=== PATIENT | female | born 1945 | race Caucasian/White ===

== ENCOUNTER 2017-01-20 10:39 | Emergency (ER) | payer MEDICARE, BC | END 2017-01-20 11:12 | disposition home or self-care (01) | LOC: SCSER 10:39 | DX: J06.9 Acute upper respiratory infection, unspecified (principal); I10 Essential (primary) hypertension; F32.9 Major depressive disorder, single episode, unspecified; Z79.899 Other long term (current) drug therapy | CPT/HCPCS: 99283 ==

== ENCOUNTER 2017-04-06 10:34 | Outpatient (CLI) | payer MEDICARE, BC ==
--- NOTE | 2017-04-06 11:22 | CT ---
CT OF PELVIS PERFORMED WITHOUT CONTRAST ENHANCEMENT: History: Follow up of sacral fractures. Patient has a history of a fall. Comparison: 09-29-16 FINDINGS: There are post-operative changes of the lower lumbar spine with bilateral pedicle screws noted. The left sided sacral fracture shows evidence of continued healing. The fracture is almost completely healed. There is still a subtle fracture seen along the anterior cortex of the left sided sacrum jus t below the left pedicle screw. The right sided sacral fracture noted on the previous examination has essentially completely resolved. Bones are demineralized. No new fractures are seen. IMPRESSION: Almost complete healing of the bilateral sacral fractures. There is some minimal residual changes of the left sacral fracture. The right sided insufficiency type fracture is no longer visualized. POS: [facility]
== END 2017-04-06 10:35 | disposition home or self-care (01) ==
LOC: TBSIIMAG 10:34
PROVIDERS: ATTEND Neurological Surgery
DX: S32.10XD Unspecified fracture of sacrum, subsequent encounter for fracture with routine healing (principal)
CPT/HCPCS: 72192

== ENCOUNTER 2017-08-31 10:36 | Outpatient (CLI) | payer MEDICARE, BC | END 2017-08-31 10:37 | disposition home or self-care (01) | LOC: BICCT 10:36 | PROVIDERS: ATTEND Internal Medicine | DX: R06.00 Dyspnea, unspecified (principal); R05 Cough | CPT/HCPCS: 71046; 71250 ==

== ENCOUNTER 2017-09-05 08:17 | Outpatient (CLI) | payer MEDICARE, BC | END 2017-09-05 08:18 | disposition home or self-care (01) | LOC: CP 08:17 | PROVIDERS: ATTEND Internal Medicine | DX: R06.00 Dyspnea, unspecified (principal); R05 Cough; R06.02 Shortness of breath | CPT/HCPCS: 94060; 94727; 94729 ==

== ENCOUNTER 2018-04-18 12:13 | Outpatient (CLI) | payer MEDICARE, BC ==
--- NOTE | 2018-04-18 13:24 | RAD ---
RADIOGRAPH CHEST 2 VIEWS: HISTORY: 72-year-old female with cough. FINDINGS: There is no air space density, pulmonary edema, pleural effusion, pneumothorax, or cardiomegaly. IMPRESSION: No acute cardiopulmonary findings. jn POS: [facility]
== END 2018-04-18 12:14 | disposition home or self-care (01) ==
LOC: BICRAD 12:13
PROVIDERS: ATTEND Internal Medicine
DX: R05 Cough (principal)
CPT/HCPCS: 71046

== ENCOUNTER 2018-06-08 13:19 | Emergency (ER) | payer MEDICARE, BC ==
--- NOTE | 2018-06-08 13:59 | RAD ---
LEFT FOOT 3 VIEWS: COMPARISON: 10/10/2005 HISTORY: Trauma. Pain. Injury. FINDINGS: Chronic changes involving the 2nd tarsometatarsal articulation. There is also irregularity involving the 3rd tarsometatarsal articulation. Findings are chronic and were demonstrated on the prior exami nation. There is evidence of soft tissue swelling. No evidence of subcutaneous emphysema. Mild vas cular calcification is noted. Correlate for diabetes. No evidence of fracture. No acute erosive or destructive processes. IMPRESSION: 1. Soft tissue swelling. Correlate for cellulitis. 2. Vascular calcifications. Correlate for diabetes. 3. No radiographic evidence of osteomyelitis. Chronic changes as described above. POS: [facility]
[2018-06-08 14:13] LABS: #Basophils 0.1 thou/uL (0.0-0.2); #Lymphocytes 1.5 thou/uL (1.20-3.40); #Monocytes 0.7 thou/uL (0.11-0.59); #Neutrophils 4.4 thou/uL (1.40-6.50); %Basophils 1.6 % (0.0-1.0); %Lymphocytes 22.2 % (21.0-51.0); %Monocytes 10.6 % (0.0-10.0); %Neutrophils 65.5 % (42.0-75.0); Hemoglobin 10.8 g/dL (12.0-16.0); Mean Corpuscular HGB CONC 32.4 g/dL (32.0-36.0); Mean Corpuscular Hemoglobin 29.6 pg (27.0-31.0); Mean Corpuscular Volume 91.3 fL (78.0-98.0); Mean Platelet Volume 8.7 fL (7.4-10.4); Platelet Count 148 thou/uL (130-400); RBC Distribution Width 12.3 % (11.5-14.5); Red Blood Cell (RBC) Count 3.66 mill/uL (4.20-5.40); White Blood Cell (WBC) Count 6.8 thou/uL (4.8-10.8)
[2018-06-08 14:19] LABS: Prothrombin Time 12.8 SEC (12.0-14.7)
[2018-06-08 14:26] LABS: ALT (SGPT) 31 U/L (8-55); AST (SGOT) 41 U/L (5-34); Alkaline Phosphatase 110 U/L (40-150); Anion Gap 12 mmol/L (10-20); BUN (Urea Nitrogen) 14 mg/dL (9.8-20.1); Bilirubin, Total 0.3 mg/dL (0.2-1.2); Calc. Creatinine Clearance 0 mL/min (70-130); Calcium 9.5 mg/dL (7.8-10.44); Carbon Dioxide 27 mmol/L (23-31); Chloride 102 mmol/L (98-107); Estimated GFR-MDRD 71; Globulin 2.7 g/dL (2.4-3.5); Glucose 101 mg/dL (83-110); Potassium 4.2 mmol/L (3.5-5.1); Protein, Total 6.7 g/dL (6.0-8.3); Sodium 137 mmol/L (136-145)
--- NOTE | 2018-06-08 15:00 | ULT ---
LEFT LOWER EXTREMITY VENOUS DUPLEX ULTRASOUND INCLUDING COLOR AND SPECTRAL DOPPLER IMAGING: Date: 06/08/18 HISTORY: Leg edema. TECHNIQUE: Exam performed from groin to ankle including visualized greater saphenous, common femoral, superficia l femoral, profunda femoral, popliteal, trifurcation, and posterior tibial vein regions. FINDINGS: Phasic flow noted at all levels with normal compressibility and normal augmentation. No intraluminal thrombus. IMPRESSION: No evidence for deep venous thrombosis. POS: [facility]
== END 2018-06-08 15:32 | disposition home or self-care (01) ==
LOC: SCSER 13:19
DX: L03.116 Cellulitis of left lower limb (principal); I10 Essential (primary) hypertension; F32.9 Major depressive disorder, single episode, unspecified
CPT/HCPCS: 80053; 85025; 85610; 96365; J3370

== ENCOUNTER 2018-06-11 13:57 | Emergency (ER) | payer MEDICARE, BC | END 2018-06-11 15:03 | disposition home or self-care (01) | LOC: SCSER 13:57 | DX: L03.116 Cellulitis of left lower limb (principal); I10 Essential (primary) hypertension; Z79.899 Other long term (current) drug therapy | CPT/HCPCS: 99282 ==

== ENCOUNTER 2018-06-25 10:05 | Outpatient (CLI) | payer MEDICARE, BC ==
[2018-06-25] MEDS ORDERED: Lidocaine 2% 11 ML SYR ONE (19:22)
[2018-06-25] MEDS ORDERED: Sodium Chloride 0.9% 15 ML NEB ONE (19:22)
--- NOTE | 2018-06-25 23:06 | HP ---
HISTORY OF PRESENT ILLNESS: Ms. Monica Carrera is a very pleasant 72-year-old who presents to the [facility] for evaluation of an ulceration of the dorsum of the left foot. The patient states that on 05/26/2018, she suffered a puncture wound to the dorsum of her left lateral foot from a garden stick. She states that she was seen in Urgent Care on 2 occasions. At the time of the patient's first visit, she was given IV antibiotics and placed on p.o. antibiotics, specifically Keflex. At the time of the patient's second visit to Urgent Care, clindamycin was added to the patient's regimen. Because of progressive erythema, the patient was seen by Dr. Leon on 06/19/2018 and placed on sulfa. Also at this time, the patient was referred to the [facility] Center for further evaluation and treatment. PAST MEDICAL HISTORY: 1. Allergic rhinitis. 2. Irritable bowel syndrome. 3. Glaucoma. 4. Gastroesophageal reflux disease. 5. Sjogren's syndrome. 6. Fibromyalgia. 7. History of chronic headaches. 8. Osteoarthritis. 9. Hypertension. 10. Asthma. 11. Anemia. 12. Diverticulitis/diverticulosis. PAST SURGICAL HISTORY: 1. Hysterectomy. 2. Back surgery x4. 3. Bilateral arthroscopic knee surgeries. 4. Left mastoidectomy x2. 5. Left laser surgery for glaucoma. 6. Removal of ganglion cyst from the tendon of the right hand. 7. . 8. Laparoscopic Raúl-en-Y gastric bypass. 9. Tonsillectomy, remote. 10. Third molar extraction. 11. Laparoscopic cholecystectomy. MEDICATIONS: 1. Trazodone. 2. Zinc. 3. Vitamin E. 4. Lyrica. 5. Potassium. 6. Naprosyn. 7. Multivitamin. 8. Minocycline. 9. Magnesium oxide. 10. Magnesium. 11. Plaquenil. 12. Iron. 13. Estradiol. 14. Cyanocobalamin/folic acid. 15. Vitamin D3. 16. Chlorthalidone. 17. Cevimeline HCL. 18. Calcium carbonate/vitamin D3. 19. Bupropion hydrochloride. 20. Biotin. 21. Aspirin. 22. Amlodipine. 23. Montelukast. 24. Trelegy. ALLERGIES: ADHESIVE, DEMEROL, LASIX, SULFA. SOCIAL HISTORY: Social history is negative for tobacco use. The patient admits to the consumption of 1-2 drinks per year. FAMILY HISTORY: Family history is significant for coronary artery disease. The patient's mother was diagnosed with coronary artery disease. Family history is also significant for diabetes mellitus. The patient states that her maternal grandmother was diagnosed with diabetes mellitus. PHYSICAL EXAMINATION: VITAL SIGNS: Temperature 97.6, pulse 66, blood pressure 115/57. GENERAL: A 72-year-old female sitting on stretcher in examination room, in no acute distress. HEENT: Normocephalic, atraumatic. NECK: No nuchal rigidity. CHEST: Clear to auscultation. CV: Regular rate and rhythm. ABDOMEN: Soft. EXTREMITIES: An ulceration over the dorsum of the left lateral foot is present, which measures approximately 0.8 x 0.8 cm. Granulation tissue was present within the wound margins. Necrotic and nonviable tissue present within the wound margins were debrided with an excisional full-thickness debridement with the use of scissors. No purulent drainage is associated with the wound. No cellulitis of the left foot is appreciated. No maceration of the skin of the periwound is noted. A dorsalis pedis pulse and a posterior tibial pulse are both palpable on the left. No significant edema of the left foot is present on exam today. NEUROLOGIC: Grossly nonfocal. ASSESSMENT AND PLAN: 1. Ulceration over dorsum of left lateral foot. Dressing changes of Medihoney, 4x4s, and Coban will be initiated today. These dressing changes are to be performed on a daily basis after cleansing and irrigation. The patient will be performing her own dressing changes. I will see Ms. Carrera again in 1 week. The patient understands and is in agreement with the preceding treatment plan. 2. Allergic rhinitis. 3. Irritable bowel syndrome. 4. Glaucoma. 5. Gastroesophageal reflux disease. 6. Sjogren's. 7. Fibromyalgia. 8. History of chronic headaches. 9. Osteoarthritis. 10. Hypertension. 11. Asthma. 12. Anemia. 13. Diverticulitis/diverticulosis. Job ID: [id number]
== END 2018-06-25 10:06 | disposition home or self-care (01) ==
LOC: WCC 10:05
PROVIDERS: ATTEND Family Medicine
DX: L97.529 Non-pressure chronic ulcer of other part of left foot with unspecified severity (principal); K58.9 Irritable bowel syndrome, unspecified; H40.9 Unspecified glaucoma; K21.9 Gastro-esophageal reflux disease without esophagitis; M35.00 Sjogren syndrome, unspecified; M79.7 Fibromyalgia; R51 Headache; M19.90 Unspecified osteoarthritis, unspecified site; I10 Essential (primary) hypertension; J45.909 Unspecified asthma, uncomplicated; D64.9 Anemia, unspecified; K57.92 Diverticulitis of intestine, part unspecified, without perforation or abscess without bleeding
CPT/HCPCS: 11042; 99203; A4218; G0463

== ENCOUNTER 2018-07-02 11:06 | Outpatient (CLI) | payer MEDICARE, BC ==
--- NOTE | 2018-07-02 12:19 | PRG ---
DATE OF SERVICE: 07/02/2018 HISTORY: Ms. Monica Carrera is a very pleasant 72-year-old, who presents to the [facility] for evaluation of an ulceration of the dorsum of the left foot. The patient previously stated that on 05/26/2018, she suffered a puncture wound to the dorsum of her left lateral foot from a garden stake. She stated that she was seen in Urgent Care on 2 occasions. At the time of the patient's first visit, she was given IV antibiotics and placed on p.o. antibiotics, specifically Keflex. At the time of the patient's second visit to Urgent Care, clindamycin was added to the patient's regimen. Because of progressive erythema, the patient was seen by Dr. Leon on 06/19/2018, and placed on sulfa. Also at this time, the patient was referred to the [facility] Center for further evaluation and treatment. PHYSICAL EXAMINATION: VITAL SIGNS: Temperature 97.9, pulse 68, blood pressure 121/65. EXTREMITIES: An ulceration over the dorsum of the left lateral foot is present, which measures approximately 0.4 x 0.4 cm. The dimensions of the wound at the time of the patient's last visit were approximately 0.8 x 0.8 cm. Granulation tissue is present within the wound margins. Necrotic and nonviable tissue present within the wound margins was debrided with an excisional full-thickness debridement with the use of a curette and scissors. Undermining and desiccated tissue at the periphery of the wound were also eliminated with the use of scissors. No purulent drainage is associated with the wound. Less erythema of the dorsum of the left foot is present on exam today than at the time of the patient's last visit. No maceration of the skin of the periwound is noted. No significant edema of the left foot is appreciated on today's exam. ASSESSMENT AND PLAN: 1. Ulceration over dorsum of left foot. Dressing changes of Medihoney, 4x4s, and Coban will be continued on a daily basis after cleansing and irrigation. The patient will continue to perform her own dressing changes. The patient has been reassured that the wound appears to be healing without complications or any signs of infection. Ms. Carrera will be discharged from clinic today with followup on a p.r.n. basis. The patient understands and is in agreement with the preceding treatment plan. 2. Allergic rhinitis. 3. Irritable bowel syndrome. 4. Glaucoma. 5. Gastroesophageal reflux disease. 6. Sjogren's. 7. Fibromyalgia. 8. History of chronic headaches. 9. Osteoarthritis. 10. Hypertension. 11. Asthma. 12. Anemia. 13. Diverticulitis/diverticulosis. Job ID: [id number]
[2018-07-02] MEDS ORDERED: Lidocaine 2% 11 ML SYR ONE (18:00)
[2018-07-02] MEDS ORDERED: Sodium Chloride 0.9% 15 ML NEB ONE (18:00)
== END 2018-07-02 11:07 | disposition home or self-care (01) ==
LOC: WCC 11:06
PROVIDERS: ATTEND Family Medicine
DX: L97.529 Non-pressure chronic ulcer of other part of left foot with unspecified severity (principal); J30.9 Allergic rhinitis, unspecified; K58.9 Irritable bowel syndrome, unspecified; K21.9 Gastro-esophageal reflux disease without esophagitis; H40.9 Unspecified glaucoma; M35.00 Sjogren syndrome, unspecified; M79.7 Fibromyalgia; M19.90 Unspecified osteoarthritis, unspecified site; I10 Essential (primary) hypertension; J45.909 Unspecified asthma, uncomplicated; D64.9 Anemia, unspecified; Z86.69 Personal history of other diseases of the nervous system and sense organs
CPT/HCPCS: 11042; A4218

== ENCOUNTER 2018-07-31 13:36 | Outpatient (CLI) | payer MEDICARE, BC ==
--- NOTE | 2018-07-31 15:13 | MRI ---
Pre and postcontrast enhanced MRI images lumbar spine. HISTORY: Neurogenic claudication Multiplanar multisequence pre and postcontrast enhanced MRI images lumbar spine obtained. T12-L1: Unremarkable. L1-2: Minimal facet hypertrophy seen. The central canal and neural foramen are patent. L2-3: Minimal facet hypertrophy seen. The central canal and neural foramen are patent. L3-4: There is marked disc desiccation seen. There is irregularity involving the inferior endplate of L3 and superior endplate of L4. There is a broad-based central disc protrusion compressing the thecal sac which with the facet hypertrophy results in severe L3-4 central and lateral recess stenosi s. This is not changed since the previous comparison exam. L4-5: There are surgical fusion of this level. Disc space is fused. Pedicle hardware seen above and b elow the disc space. There is extensive intrathecal fibrosis with adhesions of adjacent nerve roots. Images are difficult to evaluate due to extensive susceptibility artifact. L5-S1: Disc desiccation seen. There is irregularity involving the inferior endplate of L5 and superio r endplate of S1. There is a broad-based disc bulge seen. Signal abnormality seen in the disc space. There is grade 1 anterolisthesis of L5 on S1. Evaluation of the neural foramen are difficult d ue to susceptibility artifact from the adjacent pedicle hardware. IMPRESSION: Extensive lumbar spine surgical changes with fusion of the L4, L5 and S1 levels. Images suggests george re L3-4 central and lateral recess stenosis with the findings concerning for bilateral neural foraminal narrowing. Transcribed Date/Time: 07/31/2018 3:20 PM
== END 2018-07-31 13:37 | disposition home or self-care (01) ==
LOC: MRI 13:36
PROVIDERS: ATTEND Neurological Surgery
DX: M48.062 Spinal stenosis, lumbar region with neurogenic claudication (principal); Z98.1 Arthrodesis status
CPT/HCPCS: 72158; 82565

== ENCOUNTER 2018-11-02 13:59 | Outpatient (CLI) | payer MEDICARE, BC ==
--- NOTE | 2018-11-02 15:07 | RAD ---
EXAM: XR Lumbar Spine Min 4 View PROVIDED CLINICAL HISTORY: Low back pain COMPARISON: MRI 07/31/2018 FINDINGS: 5 nonrib-bearing lumbar-type vertebral bodies are noted. Bilateral pedicle screws and vertical interc onnecting rods span L4-S1. The lateral views are oblique, limiting evaluation. There is question lucency about the L3 pedicle screws. Prominent disc degenerative changes are seen at the L3-4 level. Vertebral body heights appear grossly preserved. No definite evidence for abnormal translational motion with motion on extension, the degree of excursion is limited. IMPRESSION: Postoperative and degenerative changes involving the lumbar spine as above
--- NOTE | 2018-11-02 15:50 | CT ---
LUMBAR SPINE CT NONCONTRAST: INDICATION: Acute low back pain. History of prior lumbar spine surgery. FINDINGS: There is bilateral pedicle screw fixation spanning L4 through S1 with vertical interconnecting rods, bilaterally. Grade I spondylolisthesis at L5-S1 has slightly progressed from comparison 09/29/2016 brightnathan m. There is grade I spondylolisthesis at L3-4 which has progressed from prior exam. There is oblite ration of the L4-5 and L5-S1 disk spaces. Gas vacuum phenomenon at L3-4 and L5-S1 present. Osseous demineralization is present. There is no evidence of acute compression fracture. There has been interval healing of prior sacral insufficiency fractures without significant lucency r emaining. L5-S1: No definite high-grade central canal stenosis. Probable moderate right and mild left neural foraminal narrowing, although limited by streak artifact from operative hardware. L4-5: Posterior decompression without obvious high-grade osseous compromise of the vertebral canal. Mild narrowing of the neural foramina suspected within limitations due to obscuration by hardware. L3-4: Listhesis is present, facing the neural foramina bilaterally moderate to severe on the left an d moderate-appearing on the right within limitations due to streak artifact from adjacent hardware. Evidence of posterior decompression. Limited visualization of the central canal. L2-3: Slight effacement of ventral thecal sac by disk bulge. No high-grade central canal stenosis. There is mild bilateral neural foraminal narrowing. L1-2: Mild effacement of the ventral thecal sac by disk bulge. Mild narrowing of each neural forame n. T12-L1: No high-grade central canal stenosis. Disk-osteophyte complex is present with mild narrowin g of the neural foramina. Incidental note of colonic diverticulosis. Presumed bowel anastomosis of the left abdomen, although incompletely visualized. IMPRESSION: Postoperative lumbar spine with fusion spanning L4 through S1. Progressive listheses at L3-4 and L5- S1. Limited visualization due to hardware, with multilevel degenerative findings as discussed above. POS: [facility]
== END 2018-11-02 14:00 | disposition home or self-care (01) ==
LOC: BICCT 13:59
PROVIDERS: ATTEND Neurological Surgery
DX: M54.5 Low back pain (principal); M47.816 Spondylosis without myelopathy or radiculopathy, lumbar region; M43.16 Spondylolisthesis, lumbar region; Z98.1 Arthrodesis status
CPT/HCPCS: 72110; 72131

== ENCOUNTER 2018-11-27 11:33 | Outpatient (CLI) | payer MEDICARE, BC ==
[2018-11-27 14:04] LABS: Anion Gap 11 mmol/L (10-20); BUN (Urea Nitrogen) 16 mg/dL (9.8-20.1); Calc. Creatinine Clearance 0 mL/min (70-130); Calcium 9.1 mg/dL (7.8-10.44); Carbon Dioxide 28 mmol/L (23-31); Chloride 97 mmol/L (98-107); Estimated GFR-MDRD 62; Glucose 90 mg/dL (83-110); Potassium 3.9 mmol/L (3.5-5.1); Sodium 132 mmol/L (136-145)
--- NOTE | 2018-11-28 19:57 | EKG ---
Test Reason : Blood Pressure : / mmHG Vent. Rate : 071 BPM Atrial Rate : 071 BPM P-R Int : 168 ms QRS Dur : 104 ms QT Int : 432 ms P-R-T Axes : 027 -34 057 degrees QTc Int : 469 ms Normal sinus rhythm Left axis deviation Cannot rule out Anterior infarct , age undetermined Abnormal ECG When compared with ECG of 27-JUL-2016 12:54, Minimal criteria for Anterior infarct are now Present QT has lengthened Confirmed by MARGRET GLOVER, DR. Banks ([id number]) on 11/28/2018 7:57:02 PM Referred By: DALTON Confirmed By:DR. Jocelyn OSWALD MD
== END 2018-11-27 11:34 | disposition home or self-care (01) ==
LOC: LABBT 11:33
PROVIDERS: ATTEND Neurological Surgery
DX: Z01.818 Encounter for other preprocedural examination (principal); M54.5 Low back pain
CPT/HCPCS: 80048; 93005; 93010

== ENCOUNTER 2018-11-27 13:30 | Inpatient (IN) | payer MEDICARE, BC ==
[2018-11-27 11:44] VITALS: BMI 28.3
[2018-11-30] MEDS ORDERED: Bupivacaine HCl 0.5%/Epinephrine 1:200,000/PF 30 ml Vial ONE (06:17)
[2018-11-30] MEDS ORDERED: Thrombin 5000 UNITS/5 ML VIAL ONE (06:17)
[2018-11-30] MEDS ORDERED: Fentanyl 100 MCG/2 ML VIAL ONE ×3 (06:55→13:45)
[2018-11-30] MEDS ORDERED: Phenylephrine HCL 10 MG/ML VIAL ONE (08:35)
[2018-11-30] MEDS ORDERED: Promethazine HCl 25 MG/ML VIAL ONE (10:35)
[2018-11-30] MEDS ORDERED: Ondansetron PF 4 MG/2 ML Vial ONE ×2 (11:10→11:23)
[2018-11-30] MEDS ORDERED: Ketorolac Tromethamine 30 MG/ML VIAL ONE (11:10)
[2018-11-30] MEDS ORDERED: Rocuronium Bromide 10 MG/ML (10ML VIAL) ONE (11:10)
[2018-11-30] MEDS ORDERED: PROPOFOL 200 MG/20 ML VIAL ONE (11:10)
[2018-11-30] MEDS ORDERED: PHENYLEPHRINE-NS 100 MCG/ML 10 ML SYRINGE ONE (11:10)
[2018-11-30] MEDS ORDERED: Glycopyrrolate 0.2 MG/ML 5 ML SYRINGE ONE (11:10)
[2018-11-30] MEDS ORDERED: ePHEDrine 50 MG/ML VIAL ONE (11:10)
[2018-11-30] MEDS ORDERED: Lidocaine 1% PF 5 ML VIAL ONE (11:10)
--- NOTE | 2018-11-30 12:08 | OP ---
DATE OF PROCEDURE: 11/30/2018 MANUFACTURING SUPERVISOR 2ND SHIFT: Zach Trevizo PA-C. INDICATION: Spinal instability, failed hardware fusion. PROCEDURES PERFORMED: Extension of fusion L3, removal of L5 pedicle screws, replacement of L5 pedicle screws, fusion across L3-L4, L4-L5, L5-S1, placement of allograft, and placement of autograft. DESCRIPTION OF PROCEDURE: The patient was brought into the operating room and placed under general anesthesia. She was flipped from the supine to prone position on the operating room table. A linear incision was planned spanning L3-S1. This encompassed the location of a prior surgical site. After prepping and draping and after an appropriate operative pause, the incision was created. The soft tissues were swept away from midline. Self-retaining retractors were placed in the wound for optimal exposure. The hardware spanning L4-S1 was identified bilaterally. The rods and set screws were removed bilaterally. She had loose S1 pedicle screws bilaterally. Pedicle screws at S1 were removed. Pedicle screw on the left was replaced with a larger diameter pedicle screw. The right S1 pedicle screw was left empty. We then redirected our attention at the L3-L4 segment, where prior operative site and bone work were identified. The bone work was further extended after more extensive dissection. The pedicle screws at L3 were identified. Pedicle screws were placed with the aid of C-arm fluoroscopy in the pedicles of L3. An intraoperative 3D CT scan was performed to confirm appropriate placement of hardware. Rods were then placed across all screw heads on the left and the right and then final tightened. Allograft and autograft material were then placed within the lateral confines of the instrumentation construct. The wound was then irrigated. Hemostasis was maintained throughout. The wound was then closed in anatomic layers, and a pressure dressing was applied. There were no known procedural complications. Job ID: [id number]
== END 2018-11-30 15:30 | DRG 460 ==
LOC: SURG A 11-30 05:51
PROVIDERS: ADMIT Neurological Surgery; ATTEND Neurological Surgery
PROC: 0QP004Z Removal of Internal Fixation Device from Lumbar Vertebra, Open Approach (ICD-10-PCS; principal; 2018-11-30)
PROC: 0SG10K1 Fusion of 2 or more Lumbar Vertebral Joints with Nonautologous Tissue Substitute, Posterior Approach, Posterior Column, Open Approach (ICD-10-PCS; 2018-11-30)
PROC: 0SG30K1 Fusion of Lumbosacral Joint with Nonautologous Tissue Substitute, Posterior Approach, Posterior Column, Open Approach (ICD-10-PCS; 2018-11-30)
DX: T84.89XA Other specified complication of internal orthopedic prosthetic devices, implants and grafts, initial encounter (principal); I10 Essential (primary) hypertension; E78.5 Hyperlipidemia, unspecified; I25.10 Atherosclerotic heart disease of native coronary artery without angina pectoris; J45.909 Unspecified asthma, uncomplicated; M79.7 Fibromyalgia; F32.9 Major depressive disorder, single episode, unspecified; F41.9 Anxiety disorder, unspecified; Z98.84 Bariatric surgery status; Z90.710 Acquired absence of both cervix and uterus; Z91.048 Other nonmedicinal substance allergy status; Z88.5 Allergy status to narcotic agent; Z88.8 Allergy status to other drugs, medicaments and biological substances
CPT/HCPCS: 76000; C1713; J0670; J0690; J2370; J2405; J2550; J3010

== ENCOUNTER 2021-01-25 14:17 | Outpatient (CLI) | payer MEDICARE, BC | END 2021-01-25 14:18 | disposition home or self-care (01) | LOC: RAD 14:17 | PROVIDERS: ATTEND Internal Medicine Critical Care Medicine | DX: R06.00 Dyspnea, unspecified (principal) | CPT/HCPCS: 71046 ==

== ENCOUNTER 2021-02-25 10:04 | Outpatient (CLI) | payer MEDICARE, BC ==
[2021-02-25 11:30] LABS: Hemoglobin 11.7 g/dL (12.0-15.5); Mean Corpuscular HGB CONC 33.1 g/dL (32.0-36.0); Mean Corpuscular Volume 90.5 fl (81.6-98.3); Mean Platelet Volume 11.4 fl (7.4-10.4); Platelet Count 154 10x3/uL (150-450); White Blood Cell (WBC) Count 5.7 10x3/uL (3.5-10.5)
[2021-02-25 11:50] LABS: Anion Gap 10 mmol/L (10-20); BUN (Urea Nitrogen) 15 mg/dL (9.8-20.1); Calc. Creatinine Clearance 0 mL/min (70-130); Calcium 9.4 mg/dL (7.8-10.44); Carbon Dioxide 31 mmol/L (23-31); Chloride 97 mmol/L (98-107); Glucose 100 mg/dL (83-110); Potassium 4.3 mmol/L (3.5-5.1); Sodium 134 mmol/L (136-145)
[2021-02-25 18:05] LABS: SARS-CoV-2 PCR by NAA Not Detected (NotDetected)
== END 2021-02-25 10:05 | disposition home or self-care (01) ==
LOC: LABBT 10:04
PROVIDERS: ATTEND Family Medicine
DX: Z01.818 Encounter for other preprocedural examination (principal); Z20.822 Contact with and (suspected) exposure to COVID-19
CPT/HCPCS: 80048; 85027; 93005; U0003; U0005; 93010

== ENCOUNTER 2021-03-02 12:34 | Day surgery (SDC) | payer MEDICARE, BC ==
[2021-02-24 10:21] VITALS: BMI 23.6
[2021-03-02] MEDS ORDERED: CEFAZOLIN 1 GM VIAL ONE (13:45)
[2021-03-02] MEDS ORDERED: Sodium Chloride 0.9% 100 ML ONE (13:45)
[2021-03-02] MEDS ORDERED: EPINEPHrine 1 MG/ML AMP ONE (14:36)
[2021-03-02] MEDS ORDERED: Lidocaine 2% PF 5 ML VIAL ONE (14:36)
[2021-03-02] MEDS ORDERED: Bupivacaine PF 0.5% 30 ML VIAL ONE (14:36)
[2021-03-02] MEDS ORDERED: Ketamine 50 MG/ML (10ML VIAL) ONE (14:46)
[2021-03-02] MEDS ORDERED: Fentanyl 100 MCG/2 ML VIAL ONE (14:46)
[2021-03-02] MEDS ORDERED: Ondansetron PF 4 MG/2 ML Vial ONE ×2 (15:03→15:13)
[2021-03-02] MEDS ORDERED: PROPOFOL 200 MG/20 ML VIAL ONE (15:03)
== END 2021-03-02 17:08 | disposition home or self-care (01) ==
LOC: SDC 12:34
PROVIDERS: ATTEND Anesthesiology Pain Medicine
PROC: 0JH70DZ Insertion of Multiple Array Stimulator Generator into Back Subcutaneous Tissue and Fascia, Open Approach (ICD-10-PCS; principal; 2021-03-02)
PROC: 00HU3MZ Insertion of Neurostimulator Lead into Spinal Canal, Percutaneous Approach (ICD-10-PCS; 2021-03-02)
DX: M96.1 Postlaminectomy syndrome, not elsewhere classified (principal); M54.16 Radiculopathy, lumbar region; G89.29 Other chronic pain; I10 Essential (primary) hypertension; K21.9 Gastro-esophageal reflux disease without esophagitis; M19.90 Unspecified osteoarthritis, unspecified site; M79.7 Fibromyalgia; Z79.02 Long term (current) use of antithrombotics/antiplatelets; Z79.899 Other long term (current) drug therapy; Z88.2 Allergy status to sulfonamides; Z88.5 Allergy status to narcotic agent; Z91.048 Other nonmedicinal substance allergy status; Z98.1 Arthrodesis status; Z98.84 Bariatric surgery status
CPT/HCPCS: 72020; 76000; C1713; J0171; J0690; J2001; J2405; J2704; J3010; J3490; S0020